=== PATIENT | female | born 1980 | race African-American/Black ===

== ENCOUNTER 2018-07-12 17:38 | Inpatient (IN) ==
[2018-07-12 19:34] LABS: Basophils # 0.1 10*3/uL (0.0-0.2); Basophils % 0.3 % (0.0-0.8); Eosinophils # 0.3 10*3/uL (0.0-0.87); Eosinophils % 1.5 % (0.00-10.9); Hematocrit 34.3 VOL% (35.7-47.0); Hemoglobin 11.1 GM/DL (12.0-16.0); Immature Granulocytes % 0.9 %; Immature Granulocytes Absolute 0.16 #; Lymphocytes # 3.2 10*3/uL (1.4-4.0); Lymphocytes % 18.2 % (21.3-54.2); Mean Corpuscular HGB Conc 32.4 GM/DL (32-36); Mean Corpuscular Hemoglobin 29 PG (27-34); Mean Corpuscular Volume 88.6 FL (87-102); Mean Platelet Volume 10.1 FL (9.6-12.0); Monocytes # 1.4 10*3/uL (0.11-0.8); Monocytes % 7.8 % (1.7-12.7); NRBC # 0.03 10*3/uL; Neutrophils # 12.7 10*3/uL (1.4-7.4); Neutrophils % 71.3 % (38.7-73.9); Platelet Count 302 T/CUMM (130-400); Red Blood Count 3.87 MC/CUMM (3.8-5.5); Red Cell Distribution Width 15.1 % (9.3-17.3); White Blood Count 17.7 T/CUMM (4-12)
[2018-07-12 19:56] LABS: Alanine Aminotransferase 14 U/L (13-56); Albumin 3.1 G/DL (3.4-5.0); Alkaline Phosphatase 49 U/L (45-117); Aspartate Amino Transferase 14 U/L (0-37); Bilirubin,Total < 0.39 MG/DL (0.2-1.0); Blood Urea Nitrogen 14 MG/DL (7-18); Calcium 9.5 MG/DL (8.5-10.1); Glucose 77 MG/DL (74-106); Osmolality,Calculated 274.7 MOS/KG (273-304); Potassium 3.5 MMOL/L (3.5-5.1); Sodium 138 MMOL/L (136-145); Total Protein 7.6 G/DL (6.4-8.3)
[2018-07-12 20:02] LABS: INR 0.9; PT Patient Result 9.9 SECS; Partial Thromboplastin Time 29.2 SECS (0-40)
[2018-07-12] MEDS ORDERED: ACETAMINOPHEN 325 MG TABLET PO PRN (20:41)
[2018-07-12] MEDS ORDERED: ONDANSETRON 4 MG/2 ML VIAL IV PRN (20:41)
[2018-07-12] MEDS ORDERED: DOCUSATE SODIUM 100 MG CAPSULE PO SCH (21:00)
[2018-07-12 22:14] LABS: Apearance,Urine CLEAR (Clear); Bilirubin,Urine Negative (Negative); Blood, Urine Negative (Negative); Glucose,Urine (UA) Negative (Negative); Ketones,Urine 5 mg/dL (Negative); Mucus,Urine Occasional /LPF (Occasional); Nitrite,Urine Negative (Negative); Protein,Urine Negative; RBC,Urine <1 /HPF (0-4); Squamous Epithelial Cell,Urine Occasional /HPF (0-10); Urine Color Yellow (Yellow); Urine Specific Gravity 1.023 (1.001-1.035); Urine Urobilinogen < 2.0 EU/DL (0.2-1.0); WBC,Urine <1 /HPF (0-6)
[2018-07-13] MEDS: ALBUTEROL 2.5 MG/3 ML NEB RESP TX PRN ×2 (04:40→08:36)
[2018-07-13] MEDS ORDERED: MAGNESIUM GLUCONATE 500 MG TABLET PO SCH (09:00)
[2018-07-13] MEDS ORDERED: Fluticasone/Vilanterol [Breo Ellipta 200-25 Mcg Inh] INH SCH (09:00)
[2018-07-13] MEDS ORDERED: INFLUENZA VIRUS VACCINE 0.5 ML SYRINGE IM ONE (09:00)
[2018-07-13] MEDS ORDERED: PANTOPRAZOLE 40 MG TABLET PO SCH (09:00)
[2018-07-13] MEDS ORDERED: ASPIRIN EC 81 MG TABLET PO SCH (09:00)
[2018-07-13] MEDS: METHYLDOPA 250 MG TABLET PO SCH ×2 (09:09→15:26)
[2018-07-13] MEDS: LABETALOL 200 MG TABLET PO SCH ×2 (09:09→15:25)
[2018-07-13 15:32] VITALS: BP 134/87
[2018-07-13] MEDS ORDERED: INSULIN REGULAR 100 UNIT/ML SUBCUT SCH (16:30)
[2018-07-13] MEDS ORDERED: INSULIN NPH 100 UNIT/ML SUBCUT SCH (16:30)
[2018-07-14] MEDS ORDERED: INSULIN REGULAR 100 UNIT/ML SUBCUT SCH (07:30)
[2018-07-14] MEDS ORDERED: INSULIN NPH 100 UNIT/ML SUBCUT SCH (07:30)
== END 2018-07-13 16:15 | disposition home or self-care (01) | DRG 833 ==
LOC: N.ED 17:38 → N.EDINP 20:41 → N.OB 21:19
PROVIDERS: ADMIT Obstetrics & Gynecology; ATTEND Obstetrics & Gynecology

== ENCOUNTER 2018-11-17 04:03 | Inpatient (IN) ==
[2018-11-17] MEDS ORDERED: ONDANSETRON 4 MG/2 ML VIAL IV PRN (04:59)
[2018-11-17] MEDS ORDERED: FAMOTIDINE 20 MG/2 ML VIAL IV SCH (05:00)
[2018-11-17 05:17] LABS: Apearance,Urine CLEAR (Clear); Bacteria,Urine Occasional /HPF (Few); Bilirubin,Urine Negative (Negative); Blood, Urine Small mg/dL (Negative); Glucose,Urine (UA) Negative (Negative); Ketones,Urine 20 mg/dL (Negative); Mucus,Urine Occasional /LPF (Occasional); Nitrite,Urine Negative (Negative); Protein,Urine Negative; RBC,Urine <1 /HPF (0-4); Squamous Epithelial Cell,Urine Occasional /HPF (0-10); Urine Color Straw (Yellow); Urine Specific Gravity 1.009 (1.001-1.035); Urine Urobilinogen < 2.0 EU/DL (0.2-1.0); WBC,Urine <1 /HPF (0-6)
[2018-11-17] MEDS: LACTATED RINGERS 1,000 ML IV SCH ×3 (05:20→14:21)
[2018-11-17 05:21] LABS: Basophils % 0.3 % (0.0-0.8); Eosinophils # 0.1 10*3/uL (0.0-0.87); Eosinophils % 0.5 % (0.00-10.9); Hematocrit 36.7 VOL% (35.7-47.0); Hemoglobin 11.3 GM/DL (12.0-16.0); Immature Granulocytes % 1.4 %; Immature Granulocytes Absolute 0.15 #; Lymphocytes # 2.3 10*3/uL (1.4-4.0); Lymphocytes % 20.5 % (21.3-54.2); Mean Corpuscular HGB Conc 30.8 GM/DL (32-36); Mean Corpuscular Hemoglobin 26 PG (27-34); Mean Corpuscular Volume 85.5 FL (87-102); Mean Platelet Volume 10.8 FL (9.6-12.0); Monocytes # 0.9 10*3/uL (0.11-0.8); Monocytes % 8.5 % (1.7-12.7); NRBC # 0.06 10*3/uL; Neutrophils # 7.6 10*3/uL (1.4-7.4); Neutrophils % 68.8 % (38.7-73.9); Platelet Count 235 T/CUMM (130-400); Red Blood Count 4.29 MC/CUMM (3.8-5.5); Red Cell Distribution Width 25.6 % (9.3-17.3)
[2018-11-17] MEDS: BETAMETH SODIUM PHOS/ACETATE 30 MG/5 ML VIAL IM SCH ×2 (05:24→17:52)
[2018-11-17] MEDS: AMPICILLIN INJ 1,000 MG in SODIUM CHLORIDE 0.9% 100 ML IV SCH ×4 (05:24→23:34)
[2018-11-17] MEDS ORDERED: ACETAMINOPHEN 500 MG TABLET PO ONE (05:25)
[2018-11-17] MEDS ORDERED: ERYTHROMYCIN INJ 500 MG in SODIUM CHLORIDE 0.9% 100 ML IV SCH (05:30)
[2018-11-17] MEDS ORDERED: MEPERIDINE 50 MG/1 ML VIAL IV PRN (05:34)
[2018-11-17 05:44] LABS: Hypochromasia 1+; Platelet Estimate Adequate
[2018-11-17] MEDS: CLINDAMYCIN INJ 600 MG in PREMIX 1 EACH IV SCH ×2 (08:34→17:32)
[2018-11-17] MEDS ORDERED: METHYLDOPA 250 MG TABLET PO SCH (16:00)
[2018-11-17] MEDS: ZALEPLON 5 MG CAPSULE PO SCH (23:11)
[2018-11-18] MEDS: CLINDAMYCIN INJ 600 MG in PREMIX 1 EACH IV SCH ×2 (00:10→08:29)
[2018-11-18] MEDS ORDERED: METHYLDOPA 500 MG TABLET PO SCH (00:30)
[2018-11-18] MEDS: AMPICILLIN INJ 1,000 MG in SODIUM CHLORIDE 0.9% 100 ML IV SCH (06:25)
[2018-11-18] MEDS ORDERED: METHYLDOPA 250 MG TABLET PO SCH (08:30)
[2018-11-18] MEDS ORDERED: OXYTOCIN/LR 20 UNIT/1,000 ML BAG IV ONE ×2 (08:34→10:48)
[2018-11-18] MEDS ORDERED: FAMOTIDINE 20 MG/2 ML VIAL IV ONE (08:36)
[2018-11-18] MEDS ORDERED: CITRIC ACID/SODIUM CITRATE 30 ML UDCUP PO ONE (08:36)
[2018-11-18] MEDS ORDERED: miSOPROStol 200 MCG TABLET ONE (08:39)
[2018-11-18] MEDS ORDERED: TRANEXAMIC ACID 1,000 MG/10 ML VIAL ONE (08:40)
[2018-11-18] MEDS ORDERED: CARBOPROST TROMETHAMINE 250 MCG/ML AMP IM ONE (08:40)
[2018-11-18] MEDS: METHYLDOPA 500 MG TABLET PO SCH ×2 (08:45→16:21)
[2018-11-18] MEDS ORDERED: fentaNYL 100 MCG/2 ML VIAL ONE (08:48)
[2018-11-18] MEDS ORDERED: MORPHINE 10 MG/10 ML VIAL ONE (08:48)
[2018-11-18] MEDS ORDERED: BUPIVACAINE SPINAL 0.75% 2 ML AMP SPINAL ONE (08:49)
[2018-11-18] MEDS ORDERED: ONDANSETRON 4 MG/2 ML VIAL IV PRN (10:48)
[2018-11-18] MEDS ORDERED: RHO(D) IMMUNE GLOBULIN 300 MCG SYRINGE IM ONE ×2 (10:48→22:00)
[2018-11-18] MEDS ORDERED: ACETAMINOPHEN 325 MG TABLET PO PRN (10:48)
[2018-11-18 10:52] LABS: Apearance,Urine CLEAR (Clear); Bilirubin,Urine Negative (Negative); Blood, Urine Small mg/dL (Negative); Glucose,Urine (UA) Negative (Negative); Ketones,Urine 20 mg/dL (Negative); Mucus,Urine Occasional /LPF (Occasional); Nitrite,Urine Negative (Negative); Protein,Urine Negative; RBC,Urine 1 /HPF (0-4); Squamous Epithelial Cell,Urine Occasional /HPF (0-10); Urine Color Yellow (Yellow); Urine Specific Gravity 1.016 (1.001-1.035); Urine Urobilinogen < 2.0 EU/DL (0.2-1.0); WBC,Urine <1 /HPF (0-6)
[2018-11-18] MEDS ORDERED: ceFAZolin 1,000 MG in SYRINGE 1 EACH IV SCH (11:00)
[2018-11-18] MEDS ORDERED: LACTATED RINGERS 1,000 ML IV SCH (11:00)
[2018-11-18] MEDS ORDERED: hydrOXYzine HCL 25 MG/1 ML VIAL IM PRN (11:00)
[2018-11-18] MEDS: ACETAMINOPHEN 500 MG TABLET PO PRN ×2 (11:30→17:40)
[2018-11-18] MEDS: diphenhydrAMINE 50 MG/1 ML VIAL IV PRN ×2 (11:30→17:39)
[2018-11-18] MEDS: KETOROLAC 30 MG/1 ML VIAL IM SCH ×2 (11:45→17:39)
[2018-11-18] MEDS: HYDROmorphone 2 MG/1 ML VIAL IV PRN ×2 (12:22→20:21)
[2018-11-18] MEDS ORDERED: SODIUM CHLORIDE 0.9% 50 ML IV ONE (17:26)
[2018-11-18] MEDS: ceFAZolin 1,000 MG in SYRINGE 1 EACH IV SCH (17:39)
[2018-11-18] MEDS: DOCUSATE SODIUM 100 MG CAPSULE PO SCH (21:44)
[2018-11-18] MEDS: ZALEPLON 5 MG CAPSULE PO SCH (21:45)
[2018-11-19] MEDS: METHYLDOPA 500 MG TABLET PO SCH ×3 (00:35→16:55)
[2018-11-19] MEDS: HYDROmorphone 2 MG/1 ML VIAL IV PRN (01:44)
[2018-11-19] MEDS: ceFAZolin 1,000 MG in SYRINGE 1 EACH IV SCH (02:41)
[2018-11-19 05:48] LABS: Basophils % 0.1 % (0.0-0.8); Hematocrit 26.2 VOL% (35.7-47.0); Immature Granulocytes % 1.3 %; Immature Granulocytes Absolute 0.27 #; Lymphocytes % 9.8 % (21.3-54.2); Mean Corpuscular HGB Conc 30.5 GM/DL (32-36); Mean Corpuscular Hemoglobin 26 PG (27-34); Mean Corpuscular Volume 86.5 FL (87-102); Mean Platelet Volume 11.6 FL (9.6-12.0); Monocytes # 2.4 10*3/uL (0.11-0.8); Monocytes % 11.8 % (1.7-12.7); NRBC # 0.05 10*3/uL; Neutrophils # 15.7 10*3/uL (1.4-7.4); Platelet Count 211 T/CUMM (130-400); Red Cell Distribution Width 25.2 % (9.3-17.3)
[2018-11-19 05:49] LABS: Red Blood Count 3.03 MC/CUMM (3.8-5.5); White Blood Count 20.4 T/CUMM (4-12)
[2018-11-19 05:55] LABS: Hypochromasia 1+; Lymphocytes 7 % (20-55); Nucleated Red Blood Cells 1 (0-5); Ovalocytes Slight; Platelet Estimate Adequate; Segmented Neutrophils 84 % (50-85); Total Cells Counted 100
[2018-11-19] MEDS: oxyCODONE/ACETAMINOPHEN 5-325 MG TABLET PO PRN ×3 (07:39→20:18)
[2018-11-19] MEDS ORDERED: diphenhydrAMINE CAP 25 MG CAPSULE PO PRN (08:03)
[2018-11-19] MEDS: MAGNESIUM HYDROXIDE SUSP 30 ML UDCUP PO PRN (08:14)
[2018-11-19] MEDS: MULTIVITAMIN (PRENATAL) TABLET PO SCH (08:14)
[2018-11-19] MEDS: DOCUSATE SODIUM 100 MG CAPSULE PO SCH ×2 (08:15→20:19)
[2018-11-19] MEDS: FLUCONAZOLE 150 MG TABLET PO SCH (09:30)
[2018-11-19] MEDS: IBUPROFEN 800 MG TABLET PO PRN (12:40)
[2018-11-19] MEDS: ZALEPLON 5 MG CAPSULE PO SCH (22:44)
[2018-11-20] MEDS: METHYLDOPA 500 MG TABLET PO SCH ×4 (00:22→23:40)
[2018-11-20] MEDS: IBUPROFEN 800 MG TABLET PO PRN ×3 (01:28→18:37)
[2018-11-20] MEDS: oxyCODONE/ACETAMINOPHEN 5-325 MG TABLET PO PRN ×4 (01:28→18:38)
[2018-11-20] MEDS: MAGNESIUM HYDROXIDE SUSP 30 ML UDCUP PO PRN ×3 (01:38→20:19)
[2018-11-20] MEDS: SIMETHICONE CHEW 80 MG TABLET PO PRN ×3 (01:38→20:19)
[2018-11-20] MEDS: DOCUSATE SODIUM 100 MG CAPSULE PO SCH ×2 (08:54→20:19)
[2018-11-20] MEDS: MULTIVITAMIN (PRENATAL) TABLET PO SCH (08:55)
[2018-11-20] MEDS: FLUCONAZOLE 150 MG TABLET PO SCH (08:55)
[2018-11-20] MEDS ORDERED: SODIUM PHOSPHATE ENEMA 133 ML BOTTLE RECTAL PRN (13:16)
[2018-11-20] MEDS ORDERED: BISACODYL 10 MG SUPP RECTAL ONE (15:00)
[2018-11-20] MEDS: ZALEPLON 5 MG CAPSULE PO SCH (20:19)
[2018-11-20] MEDS ORDERED: FERROUS SULFATE 325 MG TABLET PO SCH (21:00)
[2018-11-21] MEDS ORDERED: INFLUENZA VIRUS VACCINE 0.5 ML SYRINGE IM ONE (01:22)
[2018-11-21] MEDS ORDERED: DIPH/TET/ACEL PERT BOOSTER VACCINE 0.5 ML VIAL IM ONE (01:22)
[2018-11-21 04:53] VITALS: BP 146/97
[2018-11-21] MEDS ORDERED: oxyCODONE/ACETAMINOPHEN 5-325 MG TABLET PO PRN (05:01)
[2018-11-21] MEDS: oxyCODONE/ACETAMINOPHEN 5-325 MG TABLET PO PRN (05:10)
[2018-11-21] MEDS: IBUPROFEN 800 MG TABLET PO PRN (05:10)
== END 2018-11-21 06:10 | disposition home or self-care (01) | DRG 786 ==
LOC: N.LDOUT 04:03 → N.LD 04:04 → N.OB 11-18 14:19
PROVIDERS: ADMIT Obstetrics & Gynecology; ATTEND Obstetrics & Gynecology
PROC: LDCSECT (ICD-10-PCS; 2018-11-18 09:00)